=== PATIENT | female | born 1990 | race Caucasian/White ===

== ENCOUNTER 2021-03-21 12:07 | Emergency (ER) | payer BC ==
[~2021-03-21] VITALS: Ht 162.6 cm; Wt 60.5 kg
[2021-03-21 12:24] VITALS: BP 118/68
[2021-03-21] MEDS ORDERED: LIDOCAINE-MPF 1%, 5ML ONE (12:50)
[2021-03-21] MEDS ORDERED: DIPH,PERTUSS(ACELL),TET VAC/PF 0.5 ML IM-VACC ONE ×2 (12:52→13:00)
[2021-03-21] MEDS ORDERED: OXYcodone/APAP 5/325MG TABLET ONE (12:53)
[2021-03-21] MEDS ORDERED: PLEASE ENTER ALLERGIES MC SCH (13:00)
[2021-03-21] MEDS ORDERED: OXYcodone/APAP 5/325MG TABLET PO ONE (13:00)
[2021-03-21] MEDS ORDERED: LIDOCAINE-MPF 1%, 5ML INFIL ONE (13:00)
[2021-03-21] MEDS ORDERED: NEOSPORIN OINT. PKT 1 PACKET ONE (14:16)
== END 2021-03-21 15:24 | disposition home or self-care (01) ==
LOC: ED 15:10
DX: S61.412A Laceration without foreign body of left hand, initial encounter (principal); S60.222A Contusion of left hand, initial encounter; X58.XXXA Exposure to other specified factors, initial encounter; Y93.89 Activity, other specified; Y92.410 Unspecified street and highway as the place of occurrence of the external cause; Y99.8 Other external cause status
CPT/HCPCS: 12041; 90471; 90715